=== PATIENT | female | born 1945 | race Caucasian/White ===

== ENCOUNTER → 2016-06-13 19:16 | Outpatient (CLI) | payer MEDICARE | END | disposition home or self-care (01) | LOC: D.LABREF 19:16 | DX: R25.2 Cramp and spasm (principal) ==

== ENCOUNTER → 2016-11-14 16:18 | Outpatient (CLI) | payer MEDICARE | END | disposition home or self-care (01) | LOC: D.LABREF 16:18 | DX: R31.21 Asymptomatic microscopic hematuria (principal) ==

== ENCOUNTER → 2017-06-07 07:36 | Outpatient (CLI) | payer MEDICARE ==
[~2017-06-07 07:36] MED LIST: HYDROCHLOROTH12.5 M1 PO; HYDROCODONE-APA1 TAB PO; NORVASC10 MG PO; OSTEO BI-FLEX1 EAC1 PO; ZANAFLEX4 MG PO; ZESTRIL40 MG PO
[2017-07-03 14:18] VITALS: BMI 23.0
== END | disposition home or self-care (01) ==
LOC: D.MRI 07:36
DX: R10.13 Epigastric pain (principal); K76.89 Other specified diseases of liver

== ENCOUNTER → 2017-06-14 10:41 | Outpatient (CLI) | payer MEDICARE ==
[2017-07-03 14:18] VITALS: BMI 23.0
== END | disposition home or self-care (01) ==
LOC: D.CT 10:41
DX: R93.5 Abnormal findings on diagnostic imaging of other abdominal regions, including retroperitoneum (principal); R10.9 Unspecified abdominal pain

== ENCOUNTER → 2017-08-06 09:54 | Outpatient (CLI) | payer MEDICARE ==
[2017-07-03 14:18] VITALS: BMI 23.0
== END | disposition home or self-care (01) ==
LOC: D.NM 09:54
DX: D3A.019 Benign carcinoid tumor of the small intestine, unspecified portion (principal)

== ENCOUNTER → 2017-09-27 09:54 | Outpatient (CLI) | payer MEDICARE, MEDICAID ==
[2017-07-03 14:18] VITALS: BMI 23.0
== END | disposition home or self-care (01) ==
LOC: D.CT 09:54
DX: C7A.019 Malignant carcinoid tumor of the small intestine, unspecified portion (principal)

== ENCOUNTER → 2017-10-17 16:47 | Outpatient (CLI) | payer MEDICARE ==
[2017-07-03 14:18] VITALS: BMI 23.0
== END | disposition home or self-care (01) ==
LOC: D.MAMMO 13:45
DX: Z12.31 Encounter for screening mammogram for malignant neoplasm of breast (principal)

== ENCOUNTER → 2017-11-20 16:54 | Outpatient (CLI) | payer MEDICARE ==
[2017-07-03 14:18] VITALS: BMI 23.0
[~2017-11-20 16:54] MED LIST changes: +CALCIUM 600+D T1 TA1 PO; +CENTRUM COMPLE1 EACH PO; +ZYRTEC10 MG PO
== END | disposition home or self-care (01) ==
LOC: D.MAMMO 14:00
DX: R92.8 Other abnormal and inconclusive findings on diagnostic imaging of breast (principal)

== ENCOUNTER 2018-01-15 13:39 | Day surgery (SDC) | payer MEDICARE, MEDICAID ==
[2018-01-14 13:47] LABS: BASOPHILS 0.3 % (0-2); EOSINOPHILS 2.1 % (0-7); HEMATOCRIT 35.5 % (36.0-48.0); HEMOGLOBIN 11.9 g/dL (12-16); IMMATURE GRANULOCYTES 0.2 % (0-5); LYMPHOCYTES 29.8 % (15-50); MCH 30.1 pg (26.0-34.0); MCHC 33.5 g/dL (31.0-37.0); MCV 89.6 fL (80.0-100.0); MEAN PLATELET VOLUME 8.9 fL (7.4-10.4); MONOCYTES 7.9 % (2-11); NEUTROPHILS 59.7 % (40-80); PLATELET COUNT 311 10x3/uL (130-400); RBC 3.96 10x6/uL (4.00-5.40); RDW 13.6 % (11.5-14.5); WBC 6.2 10x3/uL (4.8-10.8)
[2018-01-14 14:06] LABS: ANION GAP 14.6 mmol/L (8-16); CALCIUM 9.6 mg/dL (8.5-10.1); CARBON DIOXIDE 26.9 mmol/L (21.0-32.0); CREATININE - SERUM 0.8 mg/dL (0.6-1.3); POTASSIUM - SERUM 4.5 mmol/L (3.5-5.1)
[2018-01-14 14:14] LABS: APTT 24.9 SECONDS (22.8-39.4)
[2018-01-14 14:22] LABS: INR 0.89 (0.85-1.17); PROTIME 11.7 SECONDS (11.6-15.0)
[2018-01-15] VITALS (8 sets, daily range): BP systolic 111–133; BP diastolic 50–62; BMI 24.5
[~2018-01-15] VITALS: Ht 167.6 cm; Wt 68.9 kg
--- NOTE | ~2018-01-15 | DS ---
PATIENT:OMAR URIAS :41 MEDICAL RECORD: [id number] DISCHARGE SUMMARY ADMISSION DATE: 01/15/18 DISCHARGE DATE: 01/16/18 DATE OF ADMISSION: 01/15/2018 DATE OF DISCHARGE: 01/16/2018 ADMISSION DIAGNOSIS: Pelvic organ prolapse. DISCHARGE DIAGNOSIS: Pelvic organ prolapse. PROCEDURES: 1. Anterior colporrhaphy. 2. Repair of enterocele. ATTENDING PHYSICIAN: Alex Levy MD HISTORY OF PRESENT ILLNESS: See the history and physical in the chart. SUMMARY OF HOSPITALIZATION: The patient was admitted to the hospital and underwent procedure. Postoperative day #1, she had her packing and Coronel catheter removed. She is voiding at this time and notes minimal bleeding and a clear vaginal discharge. I have discussed with her the possibility of stress urinary incontinence. The patient has been instructed to do Kegel exercises 3 times a day. I will have her follow up in the clinic in 2 to 4 weeks as needed. If she continues to recover well, I will see her at 6 weeks. The patient has also had a minimal cough. There has been none present here in the clinic, but due to the nature of the repair, I will be prescribing Robitussin-AC to be used as needed for cough. DISCHARGE MEDICATIONS: Include Percocet and Motrin. TRANSINT:[id number] Voice Confirmation ID: [id number] DOCUMENT ID: [id number] ALEX LEVY MD at 1615 CC: [id number] DICTATION DATE: 01/16/18 1443 PUBLICITY EXPERT: 01/17/18 0840 [facility] 01/16/[address] [address]
--- NOTE | ~2018-01-15 | OP ---
PATIENT NAME: OMAR URIAS MEDICAL RECORD: [id number] :41 LOCATION:D.OPS ADMISSION DATE: SURGEON: ALEX LEVY MD DATE OF OPERATION: 01/15/2018 PREOPERATIVE DIAGNOSIS: Pelvic organ prolapse. POSTOPERATIVE DIAGNOSES: 1. Third-degree cystocele. 2. Enterocele. PROCEDURES PERFORMED: 1. Repair of enterocele. 2. Anterior colporrhaphy. SURGEON: Alex Levy MD SALON SALES CONSULTANT: Goldie Adams ANESTHESIOLOGIST: Dr. Snider ANESTHETIC: General. FINDINGS: A third-degree cystocele. Mucosa is unremarkable. At the time of dissection, enterocele was encountered. Exam under anesthesia performed prior to the repair is unremarkable. SPECIMENS REMOVED: None. DISPOSITION: Not applicable. ESTIMATED BLOOD LOSS: 350 cc. FLUIDS: Lactated Ringer's 1700 cc. URINE OUTPUT: 75 cc clear urine. COMPLICATIONS: None. DRAINS: Coronel to gravity. INDICATIONS: The patient is a 72-year-old female with pelvic organ prolapse. Exam in clinic reveals significant cystocele. The patient is consented for anterior colporrhaphy and any indicated procedure. DESCRIPTION OF PROCEDURE: After informed consent was assured, the patient was taken to the operating room where anesthetic was obtained. The patient was placed in candy-cane stirrups and prepped and draped. A weighted speculum was introduced to the vagina and the defect inspected. Allis clamp was placed anteriorly 2 cm below the urethral meatus and a second clamp placed at the vaginal cuff. The full-thickness infiltration of 0.5% lidocaine with epinephrine is now used to hydrodissect the space. Using a 15 blade, the mucosa was incised anterior to posteriorly between the 2 Allis clamps. Using Metzenbaum scissors, the mucosa is now mobilized on both right and left sides. The full dissection was carried out both sharply and bluntly using cottonoids to OPERATIVE REPORT [id number] OMAR URIAS bluntly dissect tissue. Once the anterior compartment has been dissected, it is evident the cystocele was present. The dissection was carried down to the apex of the vagina and hernia sac entered. With the bowel free of the surgical field, the hernia sac was reduced and pursestring stitches applied with a Vicryl stitch. Excess of hernia sac was now removed. Repair of the anterior defect now begins. Using Vicryl stitch in horizontal mattress close, the endopelvic fascia is now plicated in the midline in 2 layers. After the 2 layer close was completed, Gelfoam was placed in the corners for hemostasis. The excess mucosa is now excised and the mucosa is closed anteriorly and posteriorly with a Vicryl stitch. Coronel catheter started. Vaginal packing was placed. Sponge, lap, needle count is correct times 2. The patient was awakened and went to the recovery area in stable condition. TRANSINT:[id number] Voice Confirmation ID: [id number] DOCUMENT ID: [id number] ALEX LEVY MD at 1627 CC: [id number] DICTATION DATE: 01/28/18 1245 [employer]AL [employer]PPL[employer] SUPERVISOR: 01/28/18 1324 [facility] 01/16/18 [address] [place] [address]
[2018-01-16 00:30] VITALS: BP 127/48
[2018-01-16 03:28] VITALS: BP 111/54
[2018-01-16 06:26] LABS: HEMATOCRIT 29.6 % (36.0-48.0); HEMOGLOBIN 9.8 g/dL (12-16); MCH 29.9 pg (26.0-34.0); MCHC 33.1 g/dL (31.0-37.0); MCV 90.2 fL (80.0-100.0); MEAN PLATELET VOLUME 8.9 fL (7.4-10.4); RBC 3.28 10x6/uL (4.00-5.40); RDW 13.7 % (11.5-14.5); WBC 7.7 10x3/uL (4.8-10.8)
[2018-01-16 08:00] VITALS: BP 104/54
[2018-01-16 14:09] VITALS: Ht 167.6 cm; Wt 68.9 kg
== END 2018-01-16 15:10 | disposition home or self-care (01) ==
LOC: D.OPS 13:39 → D.WS 13:39 → D.OPS 01-16 15:10
PROVIDERS: Anesthesiology; Obstetrics & Gynecology
DX: N81.89 Other female genital prolapse (principal)

== ENCOUNTER → 2018-06-25 12:04 | Outpatient (CLI) | payer MEDICARE, MEDICAID ==
[2018-01-16 14:09] VITALS: BMI 24.5
== END | disposition home or self-care (01) ==
LOC: D.MRI 12:00
DX: M54.2 Cervicalgia (principal); S09.90XA Unspecified injury of head, initial encounter; X58.XXXA Exposure to other specified factors, initial encounter

== ENCOUNTER → 2018-08-14 15:06 | Outpatient (CLI) | payer MEDICARE, MEDICAID ==
[2018-01-16 14:09] VITALS: BMI 24.5
== END | disposition home or self-care (01) ==
LOC: D.CT 15:06
PROVIDERS: ATTEND Family Medicine
DX: R10.13 Epigastric pain (principal); R10.12 Left upper quadrant pain

== ENCOUNTER → 2019-01-01 09:00 | Outpatient (CLI) | payer MEDICARE, MEDICAID ==
[2018-01-16 14:09] VITALS: BMI 24.5
== END | disposition home or self-care (01) ==
LOC: D.MAMMO 09:00
PROVIDERS: ATTEND Family Medicine
DX: Z12.31 Encounter for screening mammogram for malignant neoplasm of breast (principal)

== ENCOUNTER → 2019-01-08 16:05 | Outpatient (CLI) | payer MEDICARE, MEDICAID ==
[2018-01-16 14:09] VITALS: BMI 24.5
== END | disposition home or self-care (01) ==
LOC: D.RAD 16:05
PROVIDERS: ATTEND Family Medicine
DX: M79.646 Pain in unspecified finger(s) (principal)

== ENCOUNTER → 2019-01-14 13:43 | Outpatient (CLI) | payer MEDICARE, MEDICAID ==
[2018-01-16 14:09] VITALS: BMI 24.5
== END | disposition home or self-care (01) ==
LOC: D.US 13:43
PROVIDERS: ATTEND Family Medicine
DX: R92.8 Other abnormal and inconclusive findings on diagnostic imaging of breast (principal)

== ENCOUNTER → 2019-03-04 09:04 | Outpatient (CLI) | payer MEDICARE, MEDICAID ==
[2018-01-16 14:09] VITALS: BMI 24.5
== END | disposition home or self-care (01) ==
LOC: D.CT 09:04
PROVIDERS: ATTEND Family Medicine
DX: R10.9 Unspecified abdominal pain (principal)

== ENCOUNTER 2019-04-14 05:20 | Day surgery (SDC) | payer MEDICARE, MEDICAID ==
[2019-04-13 12:30] LABS: ANION GAP 12.2 mmol/L (8-16); CALCIUM 10.4 mg/dL (8.5-10.1); CARBON DIOXIDE 29.7 mmol/L (21.0-32.0); POTASSIUM - SERUM 4.9 mmol/L (3.5-5.1)
[2019-04-13 12:33] LABS: BASOPHILS 0.5 % (0-2); EOSINOPHILS 3.8 % (0-7); HEMATOCRIT 37.7 % (36.0-48.0); HEMOGLOBIN 12.4 g/dL (12-16); IMMATURE GRANULOCYTES 0.2 % (0-5); LYMPHOCYTES 32.1 % (15-50); MCH 30.5 pg (26.0-34.0); MCHC 32.9 g/dL (31.0-37.0); MCV 92.9 fL (80.0-100.0); MEAN PLATELET VOLUME 9.1 fL (7.4-10.4); MONOCYTES 7.4 % (2-11); RBC 4.06 10x6/uL (4.00-5.40); RDW 13.1 % (11.5-14.5); WBC 6.1 10x3/uL (4.8-10.8)
[2019-04-13 12:39] LABS: PLATELET COUNT 343 10x3/uL (130-400)
[2019-04-13 13:43] LABS: APTT 24.9 SECONDS (22.8-39.4); INR 0.96 (0.85-1.17); PROTIME 12.3 SECONDS (11.6-15.0)
[~2019-04-14] VITALS: Ht 167.6 cm; Wt 71.8 kg
[~2019-04-14 05:20] MED LIST changes: +ASCORBIC ACID500 MG PO; +CALCIUM 600 +1 EAC3 PO; -CALCIUM 600+D T1 TA1 PO; +FLUTICASONE PRO16 GM NASAL; +ZINC10 MG PO; +[UNRECOGNIZED DRUG - OTHER] PO
[2019-04-14 07:00] VITALS: BP 148/63; Ht 167.6 cm; Wt 71.8 kg
[2019-04-14] MEDS ORDERED: PERCOCET 10-321 EAC1 PO (08:42)
--- NOTE | 2019-04-14 16:13 | NUR ---
1045 1 PERCOCET 10/325MG PO FOR COMPLAINTS OF ABDOMINAL PAIN OF 02/17. Hubert BERRY R.N.
--- NOTE | 2019-04-14 16:17 | NUR ---
1100 REQUESTS UP TO BATHROOM. CRIES OUT NEARLY SCREAMING UP ON SIDE OF BED FROM RECUMBENT POSITION. SHOWN BREATHING TECHNIQUES & SPLINTING OF ABDOMEN. UP TO BATHROOM. VOIDED URINE. BACK TO BED. SITIING UP ON SIDE OF BED. Hubert BERRY R.N.
--- NOTE | 2019-04-14 16:21 | NUR ---
1220 DRESSED, AWAKE & ALERT. GIVEN DISCHARGE INSTRUCTIONS INCLUDING: RX PERCOCET, MED REC, RTC APPT., [facility] D/C INSTRUCTIONS, & POST HERNIA REPAIR D/C INSTRUCTIONS. PT VOICED UNDERSTANDING. TO PRIVATE CAR PER WHEELCHAIR BY VOLUNTEER. HOME WITH DAUGHTER, BONNIE MONAHAN. Hubert BERRY R.N.
--- NOTE | 2019-04-21 14:22 | OP ---
PATIENT NAME: OMAR URIAS MEDICAL RECORD: [id number] :41 LOCATION:D.OPS ADMISSION DATE: SURGEON: ALYX JIMENEZ MD DATE OF OPERATION: 04/14/2019 PREOPERATIVE DIAGNOSES: 1. Ventral incisional hernia. 2. Metastatic neuroendocrine tumor. 3. Hypertension. 4. Polycystic liver disease. POSTOPERATIVE DIAGNOSES: 1. Ventral incisional hernia. 2. Metastatic neuroendocrine tumor. 3. Hypertension. 4. Polycystic liver disease. PROCEDURE: Ventral hernia repair with [address] mesh. SURGEON: Alyx Jimenez MD REPORT OF PROCEDURE: The patient's abdomen was prepped and draped in sterile fashion. A skin incision was made starting just to the right of the umbilicus and extending down towards the midline and inferiorly. The subcutaneous tissues were opened up using electrocautery and we eventually encountered 2 hernia sacs. These hernia sacs were opened up and noted to have no contents within them other than a couple of attachments of omentum. These omental attachments were taken down and the hernia sacs were resected all the way down to the fascial edges. There was a small fascial bridge between these 2 and this was removed. This left us with a 4 cm fascial defect just below the umbilicus. We cleared off the anterior aspect of the abdominal wall around this hernia defect and elevated the fatty tissue off of the fascia anteriorly. We then inserted an [address] mesh in an underlay fashion and sutured this down on all 4 sides using multiple interrupted 0 Prolenes. We then irrigated out the wound with normal saline and assured there was no sign of any bleeding. The fascia was closed in the midline using running 0 Vicryl incorporating bites of the mesh with each throw. The wound was then irrigated out with normal saline. Again, care was taken to assure there was no sign of any bleeding. The subcutaneous tissues were reapproximated with multiple interrupted 0 Vicryls and the skin was closed with running subcutaneous 5-0 Monocryl. A 10 mL of 0.25% Marcaine with epinephrine was infused into the surrounding tissues and the wound was dressed appropriately. COMPLICATIONS: None. CONDITION: Stable. ANESTHESIA: General endotracheal and local. BLOOD LOSS: Minimal. TRANSINT:[id number] Voice Confirmation ID: [id number] DOCUMENT ID: [id number] OPERATIVE REPORT [id number] BOOMAR BOLIVAR CHRISTIAN MD at 1422 CC: ROBERT OLEARY DO [id number] DICTATION DATE: 04/14/1948 [employer] AIDE: 04/14/19 1132 [facility] [place] 04/14/19 [facility] [address] [place] [address]
== END 2019-04-14 12:20 | disposition home or self-care (01) ==
LOC: D.OPS 05:20
PROVIDERS: Anesthesiology; ATTEND Surgery
DX: K43.9 Ventral hernia without obstruction or gangrene (principal); I10 Essential (primary) hypertension; C7B.8 Other secondary neuroendocrine tumors; Q44.6 Cystic disease of liver

== ENCOUNTER 2019-07-02 09:00 | Outpatient (CLI) | payer MEDICARE, MEDICAID ==
[2019-04-14 07:00] VITALS: BMI 25.5
[~2019-07-02 09:00] MED LIST changes: +PERCOCET 10-321 EAC1 PO
== END 2019-07-02 10:00 | disposition home or self-care (01) ==
LOC: D.MAMMO 09:00
PROVIDERS: ATTEND Surgery
DX: N63.13 Unspecified lump in the right breast, lower outer quadrant (principal)

== ENCOUNTER → 2020-09-26 09:31 | Outpatient (CLI) | payer MEDICARE, MEDICAID ==
[2019-04-14 07:00] VITALS: BMI 25.5
== END | disposition home or self-care (01) ==
LOC: D.RAD 09:30
PROVIDERS: ATTEND Family Medicine
DX: R13.10 Dysphagia, unspecified (principal)

== ENCOUNTER → 2020-09-29 21:39 | Outpatient (CLI) | payer MEDICARE, MEDICAID ==
[2019-04-14 07:00] VITALS: BMI 25.5
== END | disposition home or self-care (01) ==
LOC: D.MAMMO 14:15
PROVIDERS: ATTEND Family Medicine
DX: Z12.31 Encounter for screening mammogram for malignant neoplasm of breast (principal)

== ENCOUNTER → 2020-11-25 11:04 | Outpatient (CLI) | payer MEDICARE, MEDICAID ==
[2019-04-14 07:00] VITALS: BMI 25.5
== END | disposition home or self-care (01) ==
LOC: D.NM 11:04
PROVIDERS: ATTEND Internal Medicine Gastroenterology
DX: R10.84 Generalized abdominal pain (principal); R11.2 Nausea with vomiting, unspecified